=== PATIENT | male | born 1975 | race Caucasian/White ===

== ENCOUNTER 2019-07-19 17:19 | Emergency (ER) | payer SELFPAY ==
[~2019-07-19] VITALS: Ht 170.2 cm; Wt 99.8 kg
[~2019-07-19 17:19] MED LIST: DOXYCYCLINE HY100 MG PO; ULTRAM50 MG PO
--- OUTSIDE RECORDS SUMMARY | 2019-07-19 17:21 | XMS REPORT ---
Author Author [facility] Address Unknown Phone Unavailable Care Team Providers Care Bell Ringer Name Role Phone Ameya GUPTA Unavailable Unavailable Problems This patient has no known problems. Allergies, Adverse Reactions, Alerts This patient has no known allergies or adverse reactions. Medications This patient has no known medications. Results Test Description Test Time Test Comments Text Results Atomic Results Result Comments FOOT LEFT COMPLETE [place] [id number] Patient Name: SUSANA RAPP MR #: [id number] : 1975 Age/Sex: 41/M Req #: [id number] Adm Physician: Ordered by: JONATHON GUPTA MD Report #: [id number] Location: ER Room/Bed: Procedure: [id number] DX/FOOT LEFT COMPLETE Exam Date: 07/12/17 Exam Time: 0851 REPORT STATUS: Signed PROCEDURE: X-RAY LEFT FOOT, COMPLETE COMPARISON: None. INDICATIONS: LEFT GREAT TOE PAIN FINDINGS: There are no fractures, dislocations, lytic or blastic lesions. The bones are well-mineralized. Spurring of the calcaneus. Bone island of the cuboid. Soft tissue swelling and prominence adjacent to the first metatarsal phalangeal articulation and the interphalangeal articulation of the great toe. No bony erosions. CONCLUSION: 1. No acute bony abnormality. 2. Soft tissue swelling without bony erosions. Nitesh [place], D.O. Dictated by: Nitesh Madison D.O. on 07/12/2017 at 8:49 Electronically approved by: Nitesh Madison D.O. on 07/12/2017 at 8:49 Dictated By: NITESH MADISON DO 8 Transcribed By: LEILA on 07/12/17848 COPY TO: JONATHON GUPTA MD
[2019-07-19] MEDS ORDERED: SODIUM CHLORIDE 0.9% 1000ML 1,000 ML IV STA (18:11)
[2019-07-19] MEDS ORDERED: ONDANSETRON HCL INJ 2MG/ML 2ML 2 MG/ML VIAL IV NR (18:15)
[2019-07-19] MEDS ORDERED: HYDRALAZINE HCL 20 MG/ML VIAL IV STA (18:18)
[2019-07-19] MEDS ORDERED: ASPIRIN 81 MG CHEW TAB PO ONE (18:30)
--- NOTE | 2019-07-19 19:00 | NUR ---
REC'D REPORT IN WALKING ROUNDS WITH HUMAIRA ANTONIO FOR CONTINUITY OF CARE.
--- NOTE | 2019-07-19 19:07 | Diagnostic Imaging Report ---
EXAMINATION: CHEST SINGLE (PORTABLE) COMPARISON: None INDICATION: Cramping, dizziness ^ERMD ORDER ^[id number] ^1855 ^Y DISCUSSION: Frontal view of the chest obtained at 1852 hours. HEART AND MEDIASTINUM: The cardiomediastinal silhouette is unremarkable. LINES: None. LUNGS: The lungs are well inflated and clear. No pneumonia or pulmonary edema. PLEURA: No pleural effusion or pneumothorax. BONES AND SOFT TISSUES: No focal osseous lesion. The soft tissues are normal. IMPRESSION: No acute cardiopulmonary disease. Signed by: Dr. Karl Stewart MD on 07/19/2019 7:04 PM
[2019-07-19 19:24] LABS: BASOPHILS % 0.4 % (0.0-1.0); EOSINOPHILS # (AUTO) 0.2 (0.0-0.4); EOSINOPHILS % 2.8 % (0.0-6.0); HEMATOCRIT 49.4 % (38.2-49.6); HEMOGLOBIN 17.8 g/dL (14.0-18.0); LYMPHOCYTES # (AUTO) 1.5 (1.0-3.2); LYMPHOCYTES % 21.9 % (18.0-39.1); MEAN CORPUSCULAR HEMOGLOBIN 32.8 pg (28-32); MONOCYTES # (AUTO) 0.7 (0.2-0.8); MONOCYTES % 9.7 % (4.4-11.3); NEUTROPHILS # (AUTO) 4.5 (2.1-6.9); NEUTROPHILS % 64.9 % (38.7-80.0); PLATELET COUNT 202 x10e3/uL (140-360); RED BLOOD COUNT 5.43 x10e6/uL (4.3-5.7); RED CELL DISTRIBUTION WIDTH 12.6 % (11.7-14.4)
[2019-07-19 19:26] LABS: BILIRUBIN,URINE NEGATIVE (NEGATIVE); CLARITY,URINE CLEAR (CLEAR); COLOR,URINE YELLOW (YELLOW); KETONES,URINE NEGATIVE (NEGATIVE); LEUKOCYTE ESTERASE ,URINE NEGATIVE (NEGATIVE); NITRITE,URINE NEGATIVE (NEGATIVE); PROTEIN,URINE DIPSTICK NEGATIVE (NEGATIVE); URINE UROBILINOGEN 0.2 mg/dL (0.2 - 1)
[2019-07-19 19:41] LABS: INR 0.92; PROTHROMBIN TIME 12.8 seconds (11.9-14.5)
[2019-07-19 19:42] LABS: PARTIAL THROMBOPLASTIN TIME 30.9 seconds (23.8-35.5)
[2019-07-19 19:50] LABS: AMPHETAMINES SCREEN,URINE NEGATIVE (NEGATIVE); BENZODIAZEPINES SCREEN,URINE NEGATIVE (NEGATIVE); PHENCYCLIDINE SCREEN,URINE NEGATIVE (NEGATIVE)
[2019-07-19 19:55] LABS: ALANINE AMINOTRANSFERASE 39 IU/L (0-55); ALBUMIN 4.3 g/dL (3.5-5.0); ALBUMIN/GLOBULIN RATIO 1.2 (0.8-2.0); ALKALINE PHOSPHATASE 71 IU/L (40-150); AMYLASE 49 U/L (25-125); ANION GAP 16.8 mmol/L (8-16); BLOOD UREA NITROGEN 12 mg/dL (7-26); BUN/CREATININE RATIO 12 (6-25); CALCIUM 9.6 mg/dL (8.4-10.2); CARBON DIOXIDE 23 mmol/L (22-29); CHLORIDE 103 mmol/L (98-107); CREATINE KINASE 125 IU/L (30-200); CREATININE, SERUM 1.04 mg/dL (0.72-1.25); EST GLOMERULAR FILTRATION RATE > 60 ML/MIN (60-); GLUCOSE 95 mg/dL (74-118); LIPASE 19 U/L (8-78); POTASSIUM 3.8 mmol/L (3.5-5.1); SODIUM 139 mmol/L (136-145)
[2019-07-19 20:48] LABS: RBC,URINE 0-5 /HPF (0-5); WBC,URINE (MAN) 0-5 /HPF (0-5)
[2019-07-19 21:45] VITALS: BP 145/75
== END 2019-07-19 21:50 | disposition home or self-care (01) ==
LOC: ER 17:19
DX: R05 Cough (principal); R07.89 Other chest pain; B34.9 Viral infection, unspecified
CPT/HCPCS: 36415; 71045; 80053; 80307; 80320; 81001; 82150; 82550; 82553; 83690; 84484; 85025; 85610; 85730; 87086; 93005; 99284; J7030

== ENCOUNTER 2020-12-03 10:33 | Emergency (ER) | payer SELFPAY ==
[~2020-12-03] VITALS: Ht 167.6 cm; Wt 108.9 kg
[2020-12-03] MEDS ORDERED: AUGMENTIN 875-1 EACH PO (10:43)
== END 2020-12-03 10:44 | disposition home or self-care (01) ==
LOC: ER 10:35
DX: K11.20 Sialoadenitis, unspecified (principal)
CPT/HCPCS: 99282